=== PATIENT | male | born 1970 | race Caucasian/White ===

== ENCOUNTER → 2020-05-28 12:54 | Outpatient (CLI) | payer OTHER, SELFPAY ==
--- NOTE | 2020-05-28 12:56 | DI.MRI.S_ITS ---
PROCEDURE: MR KNEE RT WO CON INDICATIONS: Pain in right knee TECHNIQUE: Noncontrast sagittal PD fast spin echo and T2 fast spin echo with fat saturation, sagittal 3-D FLASH with fat saturation; coronal T1 spin echo and PD fast spin echo with fat saturation, and axial PD fast spin echo with fat saturation through the knee. COMPARISON: [facility] Outside Film, MR, MR KNEE RIGHT WITHOUT CONTRAST, 06/27/2017, 16:45. FINDINGS: Image quality: Excellent. Menisci: Medial meniscal tear with near complete extrusion, abnormal signal extending to the undersurface of the body and there is truncation of the free margins of the anterior horn and posterior horn. Irregularity of the peripheral lateral meniscal anterior horn suggestive of ill-defined tear. Adjacent large parameniscal cyst measuring 1.9 x 1.6 cm on sagittal image 10/8. Cruciate ligaments: Anterior cruciate ligament appears intact. Posterior cruciate ligament appears intact. Medial structures: There is medial bowing of the medial collateral ligament, with mild internal signal changes and no complete rupture. There is adjacent soft tissue edema. The appearance could reflect reactive changes to medial compartment pathology, versus low-grade sprain of the MCL. Pes anserinus tendons appear grossly unremarkable. Semimembranosus tendon appears intact. Lateral structures: The lateral collateral ligament intact. Biceps femoris tendon appears intact. Popliteus tendon grossly unremarkable. Iliotibial band appears intact. Anterior structures: Quadriceps tendon intact. Medial and lateral patellofemoral ligaments intact. There is mild patellar tendinopathy. Prepatellar and superficial infrapatellar subcutaneous edema/fluid. Bones and cartilage: No focal marrow contusion or discrete low signal fracture line. Scattered degenerative subchondral sclerosis and spurring. Within the medial compartment, diffuse full thickness loss of femoral and tibial cartilage. Within the lateral compartment, mild surface fraying of the femoral cartilage. There is intrasubstance signal change of the central weight-bearing tibial cartilage. Within the patellofemoral compartment, diffuse surface fraying of the patellar and femoral trochlear cartilage. Prominent osteophyte arising from the anterior aspect of the medial femoral condyle Joint space: Small joint effusion. No Norris's cyst. No specific evidence of intra-articular loose body. IMPRESSION: Medial meniscal tear with near complete extrusion involving the body, anterior horn and posterior horn. Grossly unchanged appearance. Better defined margins at the posterior horn since the prior study could reflect postoperative appearance. Ill-defined lateral meniscal tear involving the anterior horn, with adjacent large parameniscal cyst. This finding is new since 06/27/17 Patellar tendinopathy, with interval progression Tricompartmental joint degeneration as above, which appears progressed Dictated by: Montana Watson M.D. on 05/28/2020 at 15:12 Approved by: Montana Watson M.D. on 05/28/2020 at 15:40
== END ==
PROVIDERS: PCP Orthopaedic Surgery; Referring Provider Orthopaedic Surgery; Visit Provider Orthopaedic Surgery
DX: M25.561 Pain in right knee (principal); S83.241A Other tear of medial meniscus, current injury, right knee, initial encounter; S83.281A Other tear of lateral meniscus, current injury, right knee, initial encounter; M17.11 Unilateral primary osteoarthritis, right knee
CPT/HCPCS: 73721

== ENCOUNTER → 2020-06-02 16:49 | Outpatient (CLI) | payer OTHER, SELFPAY ==
[2020-06-02 17:38] LABS: Add Manual Diff / Slide Review NO; Basophils Absolute Auto 0 /uL (0-100); Basophils Percent Auto 0.4 % (0-2); Eosinophils Absolute Auto 100 /uL (0-450); Eosinophils Percent Auto 1.3 % (2-4); Hematocrit 41.8 % (41-53); Hemoglobin 14.3 g/dL (13.5-17.5); Lymphocytes Absolute Auto 4300 /uL (1100-4500); Lymphocytes Percent Auto 46.7 % (25-40); Mean Corpuscular HGB Conc 34.2 % (30-36); Mean Corpuscular Hemoglobin 32.1 PG (26-34); Mean Corpuscular Volume 93.9 fL (80-100); Monocytes Absolute Auto 600 /uL (0-900); Monocytes Percent Auto 6.2 % (3-14); Neutrophils Absolute Auto 4100 /uL (1500-7000); Neutrophils Percent Auto 45.4 % (50-75); Platelet Count 194 X10^3/uL (150-400); Red Blood Cell Count 4.45 X10^6/uL (4.5-5.9); White Blood Cell Count 9.1 X10^3/uL (4.5-11.0)
[2020-06-02 17:57] LABS: BUN Creatinine Ratio 18.4 (6-22); Blood Urea Nitrogen 26 mg/dL (9-20); Calcium 9.1 mg/dL (8.4-10.2); Carbon Dioxide 29 mmol/L (22-32); Chloride 106 mmol/L (98-107); Estimated Glomerular Filt Rate 53.4 mL/min (>60); Glucose 93 mg/dL (70-100); HEMOLYSIS < 15 (0-50); Sodium 139 mmol/L (137-145)
== END ==
PROVIDERS: PCP Orthopaedic Surgery; Referring Provider Orthopaedic Surgery; Visit Provider Orthopaedic Surgery
DX: Z01.812 Encounter for preprocedural laboratory examination (principal); Z01.818 Encounter for other preprocedural examination
CPT/HCPCS: 36415; 80048; 85025; 93005

== ENCOUNTER → 2020-07-05 10:00 | Outpatient (CLI) | payer OTHER, SELFPAY ==
[2020-07-05 11:02] LABS: COVID19 -Nasal RAPID Negative (Negative)
== END ==
PROVIDERS: PCP Student in an Organized Health Care Education/Training Program; Visit Provider Physician Assistant
DX: Z01.812 Encounter for preprocedural laboratory examination (principal); Z20.822 Contact with and (suspected) exposure to COVID-19
CPT/HCPCS: 87635

== ENCOUNTER 2020-07-06 09:14 | Day surgery (SDC) | payer OTHER, SELFPAY ==
[2020-07-06] VITALS (15 sets, daily range): BP systolic 105–149; BP diastolic 63–93; PULSE 54–77; RESP 10–19; TEMP 36.3–37.2; O2SAT 90–97; BMI 34.7
--- NOTE | 2020-07-06 | DI.RAD.S_ITS ---
PROCEDURE: XR KNEE RT 1TO2V INDICATIONS: POST OP TOTAL RIGHT KNEE TECHNIQUE: 2 view(s) of the knee acquired. COMPARISON: None. FINDINGS: Bones: Patient is status post knee joint arthroplasty. Hardware components are in expected positions. Visualized bony structures are intact. Soft tissues: Overlying postoperative changes are noted. IMPRESSION: Expected postoperative appearance Dictated by: Montana Watson M.D. on 07/06/2020 at 15:43 Approved by: Montana Watson M.D. on 07/06/2020 at 15:45
[2020-07-06] MEDS: ACETAMINOPHEN 325 MG TABLET 975 MG PO (09:52)
[2020-07-06] MEDS: CELECOXIB 200 MG CAPSULE PO (09:54)
[2020-07-06] MEDS: PREGABALIN 75 MG CAPSULE PO (09:54)
[2020-07-06] MEDS: VANCOMYCIN 1,000 MG/200 ML PIGGYBACK 200 MG IV (10:10)
[2020-07-06] MEDS: LACTATED RINGERS 1,000 ML 42 ML IV ×2 (10:10→14:14)
--- NOTE | 2020-07-06 10:45 | PM.PREOP ---
Pre-operative Note COVID-19 COVID-19 status: Negative Interval Note History & Physical reviewed/Exam performed by Physician: Yes Changes to H&P: No
--- NOTE | 2020-07-06 10:51 | PM.OP.1 ---
Operative Date/Time/Diagnoses Date of procedure: 07/06/20 Time of procedure: 11:30 Pre-op diagnosis: Right knee osteoarthritis Post-op diagnosis: same Procedure & Clinicians Procedure: right total knee replacement Same procedure as scheduled: Yes Indications: The patient has had progressively worsening right knee pain with radiographic changes consistent with arthritis. Non-operative management has failed and the patient has requested total knee replacement. The risks, benefits and alternatives to surgery were discussed with the patient prior to proceeding. Risks discussed included, but were not limited to, failure to relieve pain, stiffness, infection, nerve damage, deep venous thrombosis, pulmonary embolism, stroke, coma, heart attack, permanent paralysis and , as well as the potential need for eventual revision of the prosthetic. Surgeon: Sade Macias Machinist Automotive: Uziel Johnston Anesthesia Type: General and Spinal Operative Notes Findings: severe knee osteoarthritis right Closure Type: primary Specimen(s): none sent Prosthetic devices, grafts, tissues, transplants, or devices: Macias and Nephew Rosannaney BCS 2 size 8 femur, size 6 tibia, +9 poly, 38 oval patella Applied: drain(s) Estimated Blood Loss (mL): 250 Blood products transfused: none Tourniquet time (min): 100 Procedure in detail: The patient was seen in the pre-operative area, where the patient identified the right knee as the operative site and this was marked with my initials. The patient received pre-operative antibiotics, and was taken to the operating room and placed on the operative table in the supine position. After satisfactory anesthesia, a full stack web developer out was performed. The right leg was encircled with a tourniquet about the proximal thigh, and the leg was prepared from the toes to the tourniquet with ChloroPrep in the usual fashion and draped through sterile drapes. The leg was elevated and exsanguinated with Eschmark bandage and the tourniquet inflated to [250] mmHg pressure. The knee was approached through an approximately 18 cm incision centered over the patella and carried into the knee through a medial parapatellar arthrotomy. A portion of the medial and lateral meniscus was resected. Soft tissue was carefully mobilized around the patella the patella was measured with a caliper. Bone was resected from the patella and the patellar height was reconstituted with up an appropriate sized patellar component. A cover was then placed on the patella. A small amount of additional medial and lateral meniscus was resected. The visionare guide fit well to the distal femur. It looked like an appropriate distal femoral cut and the cut was made without difficulty. The rotation was assessed and the appropriate size femoral guide was placed on the distal femur and finishing cuts were made. There was no evidence of notching. The anterior, posterior and chamfer cuts were then made. The posterior osteophytes and soft tissues were then removed. The posterior capsule was injected with part of a mixture of 60 ml 0.25% Marcaine mixed with 20 ml Exparel for post operative pain control. The remainder of this mixture was injected into the capsule and subcutaneous tissues during cement curing. The tibia was prepared and the visionaire guide fit well to the distal tibia. The rotation was assessed. The patient was placed in extension residual medial and lateral meniscus as well as any residual bone was carefully resected. [No] additional tibia was resected. Hemostasis was achieved especially posteriorly. Additional local was injected into the posterior capsule. The extension gap was assessed and additional releases for gap balancing were performed as necessary. It was checked with the gap dredge pipe operator. The femoral component was trial was placed and the notch was finished. Trial tibial and femoral components were then placed and the knee placed through a range of motion. Range of motion was [0-130], with good stability throughout the range. The trials were then removed, and the tibia was finished. The bone was prepared with pulsatile lavage, and dried with a sponge. Cement was applied and the final prosthetics placed. Excess cement was removed during and after cement curing. A brief Betadine soak was performed. After confirming there was no extruded cement posteriorly, the final tibial insert was placed. The knee was copiously irrigated and the tourniquet deflated. Hemostasis was obtained with the Bovie. A drain was placed and brought out superolaterally. The capsule was closed with interrupted Vicryl suture. The subcutaneous layer was closed with barbed sutures, and the skin with a running 3-0 V-Lock suture and Surgical glue. An Aquacel Ag dressing was applied and the patient was taken to recovery having tolerated the procedure well. Complications: none Post-operative Condition: stable Disposition: Acute Care Plan for aftercare: The patient will be maintained on a standard total knee replacement protocol with weight bearing as tolerated. The patient will receive aspirin and sequential compression devices for DVT prophylaxis. The patient will be discharged home when safe for the home environment.
[2020-07-06] MEDS: CEFAZOLIN 2 GM/100 ML FROZ.PIGGY IV ×2 (11:47→21:32)
[2020-07-06] MEDS: TRANEXAMIC ACID 1,000 MG VIAL 1000 MG INJ ×2 (12:07→14:14)
--- NOTE | 2020-07-06 12:23 | SUR.OPER ---
Supine on padded OR bed. Pillow under head, arms secured on padded armboards <90 degree abduction. Safety belt across torso. Non-operative leg secured with tape over blanket over lower leg. Operative leg secured in DeMayo positioner. Foam padded brace at thigh of operative leg.
[2020-07-06] MEDS: SODIUM CHLORIDE IRRIG SOLUTION 250 ML, POVIDONE-IODINE SPONGE STICKS 1 APPLIC IRR (12:28)
[2020-07-06] MEDS: BUPIVACAINE 0.25% W/ EPI (PF) 10 ML VIAL 60 ML INJ (12:28)
[2020-07-06] MEDS: BUPIVACAINE LIPOSOME 266 MG/20 ML VIAL INJ (12:30)
[2020-07-06] MEDS: OXYCODONE IR 5 MG TABLET PO ×2 (15:35→21:39)
[2020-07-06] MEDS: SODIUM CHLORIDE 0.9% 1,000 ML 100 ML IV (16:58)
[2020-07-06] MEDS: IBUPROFEN 400 MG TABLET PO ×2 (17:30→21:34)
[2020-07-06] MEDS: ACETAMINOPHEN 325 MG TABLET 650 MG PO ×2 (17:30→21:39)
--- NOTE | 2020-07-06 18:47 | PC.NURSE ---
Addendum entered by Stefani Thakkar R.N. 07/06/20 22:10: Satisfactory post op course. Med @ 7660 for discomfort w/good relief. Dsg CDI IVF continue as per orders w/o incidence Call light w/in reach, bed alarm on for pt safety. Continue w/plan of care. Original Note: Pt arrived from PACU w/o any discomfort. A/O x 3 IVF NS @ 100/hr infusing as per orders into the LFA via pump. Dsg to right knee CDI (Roverto/aquacell dsg) Hemavac intact/patent unclamped @ 1700 Denies issues at this time. Call light w/in santa, pt calls appropriately for needs.
[2020-07-06] MEDS: ASPIRIN EC 81 MG TABLET PO (21:34)
[2020-07-06] MEDS: DOCUSATE 100 MG CAPSULE PO (21:39)
--- NOTE | 2020-07-06 21:53 | PC.NURSE ---
Pt. saw the portions for his size as not enough, and ate two trays at 100%
[2020-07-07] MEDS: IBUPROFEN 400 MG TABLET PO ×4 (00:06→12:15)
[2020-07-07 00:15] VITALS: BP 118/60; PULSE 64; RESP 18; TEMP 36.8; O2SAT 94
[2020-07-07] MEDS: OXYCODONE IR 5 MG TABLET PO ×2 (01:53→07:53)
--- NOTE | 2020-07-07 02:14 | PC.NURSE ---
Addendum entered by Karie Craig R.N. 07/07/20 04:36: Drain unclamped at 0430. Original Note: Hemovac output 400 mL w/in 4 hours. Provider made aware, order to clamp drain for 2 hrs and observe. Drain clamped at 0215.
[2020-07-07 03:48] VITALS: BP 123/70; PULSE 69; RESP 18; TEMP 36.3; O2SAT 96
[2020-07-07] MEDS: CEFAZOLIN 2 GM/100 ML FROZ.PIGGY IV (04:37)
[2020-07-07 06:18] LABS: Hematocrit 38.8 % (41-53); Hemoglobin 13.1 g/dL (13.5-17.5)
[2020-07-07 07:27] VITALS: BP 135/77; PULSE 62; RESP 16; TEMP 35.6; O2SAT 96
[2020-07-07] MEDS: DOCUSATE 100 MG CAPSULE PO (08:02)
[2020-07-07] MEDS: ASPIRIN EC 81 MG TABLET PO (08:02)
[2020-07-07] MEDS: ACETAMINOPHEN 325 MG TABLET 650 MG PO (08:02)
--- NOTE | 2020-07-07 09:09 | PM.DS.1 ---
History of Present Illness History of Present Illness Date Patient Seen: 07/07/20 Time Patient Seen: 09:09 Chief complaint: RIGHT TKA *OPB* Narrative: Please refer to previously documented HPI and chart. Discharge Providers Provider Discharge Date: 07/07/20 Primary care physician: Claire Belcher MD Consults: 07/05/20 08:50 Consult to Respiratory Therapy Evaluate & Treat Comment: Unknown if uses cpap Physician Instructions: Evaluate and treat 07/06/20 06:00 Consult to Anesthesiology Routine Comment: Consulting Provider: Anesthesiologist Reason for consultation: Regional block for post operative pain control 07/06/20 10:03 Consult to Respiratory Therapy Evaluate & Treat Comment: Physician Instructions: Evaluate and treat 07/06/20 15:56 Consult to Discharge Planning Routine Comment: Consult to Physical Therapy Evaluate & Treat Comment: Physician Instructions: postop TKA protocol Consult to Respiratory Therapy Evaluate & Treat Comment: Physician Instructions: Evaluate and treat Discharge provider: Uziel Johnston PA-C Summary Hospital Course Discharge Diagnosis: Right knee osteoarthritis Status post total right knee arthroplasty Hospital Course: This is a 50-year-old male with the above-listed diagnoses who was consented for the above indicated procedure presenting to OR undergoing said procedure without difficulty or complication been admitted for rehabilitation convalescing appropriately on postoperative day one was doing well with normal H&H and no signs of postoperative anemia had his drain pulled per Dr. Macias despite moderate output. Per Dr. Macias patient was stable for discharge home safely at that time the patient verbalized understanding postoperative care instructions and plan for follow-up in clinic for re-evaluation or sooner as needed. Status at Discharge Cognitive/behavioral status at discharge: oriented Functional status at discharge: uses cane/walker Overall status at discharge: patient is progressing back to baseline Time Spent with Patient Time spent: Less than 30 minutes Exam Vital Signs (past 8 hours): - 07/07/20 03:48 07/07/20 07:27 Temperature 97.3 F L 96.0 F L Pulse Rate 69 62 Respiratory Rate 18 16 Blood Pressure 123/70 135/77 Pulse Oximetry 96 96 Oxygen Delivery Method Room Air,CPAP Oxygen Flow Rate 0 Narrative Exam Narrative: 50-year-old male observed resting comfortably in no apparent distress. Alert and oriented within normal limits. Regular heart rate and normal inspiratory effort. Dressing was clean, dry and intact. His drain had moderate macie blood output. The extremity distal to the affected joint was neurovascularly intact with grossly normal motor function. Patient was negative for signs and symptoms of DVT bilaterally. Objective Labs Result Diagrams: 07/07/20 05:30 Labs: Laboratory Results - last 24 hr 07/07/20 05:30 Hgb 13.1 L Hct 38.8 L [facility] Medical History (Updated 07/05/20 @ 08:49 by Seema Cummins RN) Sleep apnea Surgical History (Updated 07/05/20 @ 08:46 by Seema Cummins RN) History of appendectomy History of vasectomy Social History household members: spouse Smoking Status: Never smoker alcohol intake: never Discharge Assessment & Plan Assessment and Plan Assessment: Right knee osteoarthritis Status post total right knee arthroplasty Plan of Treatment: -discharge home today after cleared by PT/OT. -right total knee care protocols apply. -follow-up in 2 weeks for re-evaluation or sooner as needed. Discharge Plan Discharge Plan Patient Disposition: Home Discharge orders & Medications Discharge Orders: Discharge (Order); Ordered 07/07/20 Ordered By: Uziel Johnston Prescriptions: New acetaminophen 325 mg Tablet 650 mg PO TID PRN (Reason: Breakthrough Pain, Moderate) Qty: 60 RF: 0 aspirin 81 mg Tablet,Delayed Release (Dr/Ec) 81 mg PO BID Qty: 90 RF: 0 ibuprofen 400 mg Tablet 400 mg PO Q4HR PRN (Reason: Breakthrough Pain, Moderate) Qty: 60 RF: 0 oxycodone 5 mg Tablet 5 mg PO Q4HR PRN (Reason: Pain, Moderate (4-6)) Qty: 60 RF: 0 Continued acetaminophen 650 mg Tablet 650 mg PO Q6H PRN (Reason: Pain (Scale Score 7-10)) RF: 0 Follow up/Referrals: Claire Belcher MD [Primary Care Provider] - Sade Macias MD [Physician] - (Follow-up in clinic in 2 weeks for re-evaluation or sooner as needed.) Diet/Activity/Treatments Diet: Diet as Tolerated Activity: Weight-bearing as tolerated on right lower extremity. Cold/Heat Therapy: Ice 20 minutes every hour as needed and tolerated. Skin/Wound/Dressing Care Report to your healthcare provider any signs of infection, such as:: chills, fever, night sweats, increased pain, unusual drainage and unusual redness Dressing: Keep dressing clean, dry and intact. Call if soiled or saturated. Visit Report/Discharge Packet Instructions: DI for Knee Replacement Stand Alone Forms: Surgery Discharge Discharge Data Primary Care Provider: Claire Belcher Attending Provider: Sade Macias VTE Deep Vein Thrombosis/Pulmonary Embolism Present on Admission: No
--- NOTE | 2020-07-07 09:20 | PT.IIE ---
Current Diagnoses Sleep apnea, unspecified (07/06/20) Unilateral primary osteoarthritis, right knee (07/06/20) Surgery Performed Operation Date: 07/06/20 10:45 Actual Procedures p Total Knee Arthroplasty(Right) - Sade Macias MD Surgical History (Last Updated 07/05/20 @ 08:46 by Seema Cummins, RN) History of appendectomy History of vasectomy Medical History (Last Updated 07/05/20 @ 08:49 by Seema Cummins, RN) Sleep apnea Physical Therapy Inpatient Evaluation/Re-Eval M1 PT/OT-IP Prior Functional Status Start: 07/07/20 11:49 Freq: NEEDED Status: Active Protocol: Document 07/07/20 09:20 AB (Rec: 07/07/20 12:26 AB [email or web address]) Medical Review Prior Functional Status Medical History Reviewed Yes Communication able to make needs known Mobility and Gait pt stated that he is independent with all mobilities and ambulation without AD Social History Household Members spouse Living Arrangements House Number of Floors (Floors) 3 or More Floors Number of Stairs To Enter/Railing? 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 M2 PT-IP Current Condition Start: 07/07/20 11:49 Freq: NEEDED Status: Active Protocol: Document 07/07/20 09:20 AB (Rec: 07/07/20 12:26 AB [email or web address]) Physical Therapy Current Condition Current Condition Evaluation Date 07/07/20 Treatment Diagnosis s/p R TKA; difficulty in walking Onset Date 07/06/20 Weight Bearing Status Weight Bearing Status Weight Bear as Tolerated Allowed Weight Bearing Amount (enter % RLE WBAT or #) (%) M3 PT-IP Subjective Start: 07/07/20 11:49 Freq: NEEDED Status: Active Protocol: Document 07/07/20 09:20 AB (Rec: 07/07/20 12:26 AB [id number]) Subjective Physical Therapy Visit Type Type Initial Evaluation Visit Start Time 09:20 Visit Stop Time 09:54 Total Visit Minutes 34 Number of WHIP OPERATOR Visits 0 Physical Therapy Visit Comments Patient Comments pt is agreeable to do PT Therapy Pain Assessment Pain When Pain Assessed At Rest Pain Present Pain Present Pain Reported Location rigth knee Intensity 3 Scale Used increases to 5/10 with mobility Pain Management Techniques Apply Cold,Distraction, Elevation,Modification of Treatment,Re-positioning, Timing of Activity with Medications M4 PT-IP Mobility and Gait Start: 07/07/20 11:49 Freq: NEEDED Status: Active Protocol: Document 07/07/20 09:20 AB (Rec: 07/07/20 12:26 AB [id number]) PT-Bed Mobility Assessment Supine to Sit Supine to Sit Standby Assistance Sit to Supine Sit to Supine Standby Assistance PT-Transfer Assessment Sit to and From Stand Sit to and from Stand Standby Assistance Equipment Transfer Assistive Device Gait Belt,Front Wheeled Walker Orthotic/Prosthetic Devices or Brace: No Comments Mobility Comments completed supine to sit SBA. pt was able to sit on EOB SBA. completed sit to stand SBA and ambulated in room using FWW SBA and agreed to walk in the hallway using FWW ~ 125 ft SBA. completed up/down steps using 1 rail SBA and cues. ambulated back to his room using FWW SBA and requested to go back in bed to rest and completed sit to supine SBA. positioned in bed. call light and table placed within reach . ice pack provided. Gait Assessment Gait Gait Assistance Required: Standby Assistance Distance (Feet) 125 Able to Maintain Weight Bearing Status Yes During Gait Assistive Devices Assistive Device Gait Belt,Front Wheeled Walker Orthotic/Prosthetic Devices or Brace: No Gait Deviations General Gait Pattern Antalgic,Decreased Stride Length,Decreased Feet Clearance Factors Limiting Gait Function Factors Limiting Gait Function Decreased Activity Tolerance, Decreased Strength,Limited Range of Motion,Pain,Poor Balance Comments Gait Comments pls refer to mobiltiy section for details Stair Climbing Assessment Evaluation Level of Assist On Stairs Standby Assistance Devices Stair Climbing Assistive Devices Left Railing,Right Railing Technique/Endurance Stair Climbing Direction Ascend and Descend Stair Climbing Technique Step to Step Number of Steps Climbed 3 Query Text: Stair Climbing Set # Repetitions (reps) 2 Comments Stair Climbing Comments pt first used L rail ascending in first set and then R rail on 2nd set. pt stated that he feels confident with stair climbing and does not have any concerns PT-Balance Assessment Sitting Balance and Reactions Static Sitting Balance Ability Normal Dynamic Sitting Balance Ability Normal Standing Balance and Reactions Static Standing Balance Ability Good Dynamic Standing Balance Ability Fair Device Used FWW M5 PT-IP Objective Assessments Start: 07/07/20 11:49 Freq: NEEDED Status: Active Protocol: Document 07/07/20 09:20 AB (Rec: 07/07/20 12:26 AB [email or web address]) Orientation Orientation/Cognition Level of Alertness Alert Orientation Name,Place,Situation Language Function Ability No Deficits Noted Safety Awareness Understands Safety Issues Memory Description No Deficits Noted Gross Range of Motion Lower Extremity ROM Assessment Right Impaired Impairments R knee extension lacking ~ 15 deg to 0 R knee flexion: ~ 90 deg Strength Lower Extremity Strength Assessment Right Impaired Hip 4-/5 Knee 4-/5 Coordination Assessment Gross Coordination Gross Coordination WNL Sensation Assessment Sensation Gross Sensation WNL Muscle Tone Muscle Tone WNL Yes M6 PT-IP Treatment Start: 07/07/20 11:49 Freq: NEEDED Status: Active Protocol: Document 07/07/20 09:20 AB (Rec: 07/07/20 12:26 AB [email or web address]) Physical Therapy Treatment Exercises Exercises Heel Slides Education Education Provided Precautions,Weight Bearing Status,Post-Op Packet,Safety M7 PT-IP Assessment and Plan Start: 07/07/20 11:49 Freq: NEEDED Status: Active Protocol: Document 07/07/20 09:20 AB (Rec: 07/07/20 12:26 AB [email or web address]) PT Summary Assessment and Plan Potential Rehabilitation Potential Good Status of Condition at Evaluation Stable Summary Impairments Pain,ROM,Strength,Balance, Coordination,Bed Mobility, Transfers,Gait,Activity Tolerance Assessment Summary pt requiring SBA with mobility and plans to go home with spouse to assist him. pt stated that he is set up for outpt PT. pt may go home when medically stable. Goals Bed Mobility Goal Independent Transfer Goal Independent,Front Wheeled Walker Gait Goal Independent,Front Wheel Walker Gait Distance 200 Other Goals up/down 6 steps 1 rail mod I Days to Meet Goals 3 Frequency of Treatment Frequency Of Treatment Twice a Day Treatment Plan Physical Therapy Treatment Plan Bed Mobility Training,Transfer Training,Gait Training, Therapeutic Exercise,Balance Retraining,Post Op Education, Discharge Planning,Hot or Cold Pack,Neuromuscular Re-ed, Coordination Retraining,Manual Therapy Recommendations To Nursing Amount of Assist Needed Standby Assistance Discharge Recommendations PT Discharge Recommendations Home with Assistance, Outpatient PT Transportation Needs at Discharge Private Vehicle
--- NOTE | 2020-07-07 13:28 | CM.DANOTE ---
Patient is a 50 year old male who was admitted on 07/06/20 for RTKA. Pt has [employer] for insurance and his PCP is Claire Belcher. EMR was reviewed. Per Ortho MD, pt tolerated procedure well and pain controlled and likely can d/c home later today pending PT eval. Per PT, recommending safe d/c home with spouse assist and outpt PT. 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 Pt denies any hx of HH or SNF and has not completed any DPOA pwk. Pt preference is home today via spouse POV and does not anticipate any needs. Plan: SW to follow for likely pt d/c home later today via spouse POV and no SW needs at this time. MITCHELL Shirley Discharge Planning/Care Management CM Discharge Assessment Start: 07/07/20 13:26 Freq: Status: Active Protocol: Document 07/07/20 13:27 BF (Rec: 07/07/20 13:28 BF [id number]) Discharge Planning Assessment Assigned [employer] Tobacco Processing Supervisor MITCHELL Salinas Advance Directives? No Advance Directives on File No History Provided By Patient,Medical Record Has Patient been admitted in last 30 No days? Prior Living Arrangements House Household Members spouse Type of transporation used prior to Drives own vehicle admit Independent with ADL's Yes Is patient alert and oriented? Yes Caregiver for Another No Barriers to Discharge No Discharge Plan Home Community Services Physical Therapy Transportation Arrangement Spouse can transport home Referrals Initiated None needed Whiteboard Updated in Patient Room with Yes name and ext. # of Cigar Tobacco Processing Supervisor Review Status In Process Please Provide Date Initial DC 07/07/20 Assessment Was Performed Next Review Type Continued Stay Review Pre-Anesthesia Assessment Start: 07/05/20 08:21 Freq: Status: Active Protocol: Document 07/05/20 08:21 TI (Rec: 07/05/20 08:49 [facility] [id number]) Pre-Anesthesia Assessment Patient Information Reviewed Via Chart Review Diagnostic Results BMP/CMP,CBC,EKG,Urinalysis, Other Comment A1c Primary Care Provider Neeraj Trevino Seen Specialist in Last 12 Months Yes Specialist Seen Orthopedist Height 187.96 cm Anesthesia Review Requested No Campus Administrative Assistant No Smoking Status Never smoker Musculoskeletal Symptoms Abnormal Gait,Difficulty Walking,Joint Pain Hx Sleep Apnea Yes
--- NOTE | 2020-07-07 13:33 | PC.NURSE ---
Pt is dressed and ready for discharge home with Spouse. Spouse is at the bedside. Went over d/c instructions with Pt and Spouse-discussed d/c meds, time of last dose, reviewed stroke education, s/s of infection and when to call MD, showering, and drinking plenty of fluids to prevent constipation or dehydration. Reminded Pt that is not to drive while on narcotics. Pt and Spouse deny further questions and were taken out via w/c to POV with all belongings.
== END 2020-07-07 13:36 | disposition home or self-care (01) ==
LOC: OR 09:19 → AC 09:19
PROVIDERS: PCP Student in an Organized Health Care Education/Training Program; Referring Provider Orthopaedic Surgery; Visit Provider Orthopaedic Surgery
PROC: 0SRC0JZ Replacement of Right Knee Joint with Synthetic Substitute, Open Approach (ICD-10-PCS; CPT 27447; principal; 2020-07-06 10:45)
DX: M17.11 Unilateral primary osteoarthritis, right knee (principal); G47.30 Sleep apnea, unspecified
CPT/HCPCS: 27447; 36415; 73560; 85014; 85018; 94660; 94762; 97161; C1776; C9290; J0690; J1100; J2250; J2274; J2405; J2704; J3010

== ENCOUNTER → 2023-04-27 12:44 | Outpatient (CLI) | payer OTHER, SELFPAY ==
[2020-07-06 16:00] VITALS: BMI 34.7
[2023-04-27 13:09] LABS: Urine Volume 10mL (spun)
[2023-04-27 14:08] LABS: Add Manual Diff / Slide Review NO; Basophils Absolute Auto 0 /uL (0-100); Basophils Percent Auto 0.5 % (0-2); Eosinophils Absolute Auto 100 /uL (0-450); Eosinophils Percent Auto 1.1 % (2-4); Hematocrit 43.5 % (41-53); Hemoglobin 14.9 g/dL (13.5-17.5); Lymphocytes Absolute Auto 3900 /uL (1100-4500); Lymphocytes Percent Auto 43.7 % (25-40); Mean Corpuscular HGB Conc 34.4 % (30-36); Mean Corpuscular Hemoglobin 32.2 PG (26-34); Mean Corpuscular Volume 93.5 fL (80-100); Monocytes Absolute Auto 700 /uL (0-900); Monocytes Percent Auto 7.6 % (3-14); Neutrophils Absolute Auto 4200 /uL (1500-7000); Neutrophils Percent Auto 47.1 % (50-75); Platelet Count 229 X10^3/uL (150-400); Red Blood Cell Count 4.65 X10^6/uL (4.5-5.9); Red Cell Distribution Width 13.5 % (11.6-14.8)
[2023-04-27 14:13] LABS: Appearance Urine UA CLEAR; Bilirubin Urine UA NEGATIVE (NEGATIVE); Color Urine UA YELLOW; Glucose Urine UA NEGATIVE (Negative); Ketones Urine UA NEGATIVE (NEGATIVE); Leukocyte Esterase Urine UA NEGATIVE (NEGATIVE); Nitrite Urine UA NEGATIVE (Negative); Occult Blood Urine UA NEGATIVE (Negative); Protein Urine UA NEGATIVE (Negative); Urobilinogen Urine UA 0.2 E.U./dL (0.2); pH Urine UA 5.5 (4.5-8.0)
[2023-04-27 14:28] LABS: BUN Creatinine Ratio 16.1 (6-22); Blood Urea Nitrogen 18 mg/dL (9-20); Calcium 10.1 mg/dL (8.4-10.2); Carbon Dioxide 27 mmol/L (22-32); Chloride 101 mmol/L (98-107); Estimated Glomerular Filt Rate > 60 mL/min (>60); Glucose 92 mg/dL (70-100); HEMOLYSIS < 15 (0-50); Potassium 4.8 mmol/L (3.4-5.1); Sodium 138 mmol/L (137-145)
[2023-04-27 14:30] LABS: Hemoglobin A1C% w Est Avg Glu 5.5 % (4.0-6.0)
[2023-04-27 14:32] LABS: Bacteria Urine None Seen; Culture Indicated Urine Cult Not Indicated; RBC Urine None Seen (0-5/HPF); Squamous Epithelial Cell Urine 1-5 /HPF (0-5/HPF); WBC Urine 0-1/HPF (0-5/HPF)
== END ==
LOC: LAB 12:48
PROVIDERS: Referring Provider Orthopaedic Surgery; Visit Provider Orthopaedic Surgery
DX: Z01.812 Encounter for preprocedural laboratory examination (principal); Z01.818 Encounter for other preprocedural examination; R73.9 Hyperglycemia, unspecified; N39.0 Urinary tract infection, site not specified
CPT/HCPCS: 36415; 80048; 81001; 83036; 85025; 93005

== ENCOUNTER 2023-05-18 11:52 | Day surgery (SDC) | payer OTHER, SELFPAY ==
[2020-07-06 16:00] VITALS: BMI 34.7
[2023-05-09 12:48] VITALS: BMI 37.3
[2023-05-18] VITALS (16 sets, daily range): BP systolic 139–174; BP diastolic 57–114; PULSE 61–112; RESP 12–21; TEMP 35.9–36.8; O2SAT 92–97; BMI 36.3; BMI 35.5
--- NOTE | 2023-05-18 | DI.RAD.S_ITS ---
PROCEDURE: XR KNEE LT 1TO2V INDICATIONS: LEFT KNEE TECHNIQUE: 2 view(s) of the knee acquired. COMPARISON: [facility], CR, XR KNEE RT 1TO2V, 07/06/2020, 15:00. FINDINGS: Bones: Patient is status post knee joint arthroplasty. Hardware components are in expected positions. Visualized bony structures are intact. Soft tissues: Overlying postoperative changes are noted. Expected intra-articular gas. IMPRESSION: Expected post-operative appearance of a knee arthroplasty. Dictated by: India Pickard M.D. on 05/18/2023 at 19:58 Approved by: India Pickard M.D. on 05/18/2023 at 19:59
[2023-05-18] MEDS: LACTATED RINGERS 1,000 ML 42 ML IV ×2 (13:23→17:14)
[2023-05-18] MEDS: ACETAMINOPHEN 325 MG TABLET 975 MG PO (13:46)
[2023-05-18] MEDS: CELECOXIB 200 MG CAPSULE PO (13:47)
[2023-05-18] MEDS: VANCOMYCIN 1,500 MG/300 ML PIGGYBACK 200 MG IV (13:48)
--- NOTE | 2023-05-18 15:26 | P.OP_ITS ---
Operative Date/Time/Diagnoses Date of procedure: 05/18/23 Time of procedure: 15:35 Pre-op diagnosis: Severe left knee OA Post-op diagnosis: same Procedure & Clinicians Procedure: Left total knee arthroplasty with Cori Same procedure as scheduled: Yes Indications: The patient has had progressively worsening left knee pain with radiographic ch anges consistent with arthritis. Non-operative management has failed and the patient has requested total knee replacement. The risks, benefits and alternatives to surgery were discussed with the patient prior to proceeding. Risks discussed included, but were not limited to, failure to relieve pain, stiffness, infection, nerve damage, deep venous thrombosis, pulmonary embolism, stroke, coma, heart attack, permanent paralysis and , as well as the potential need for eventual revision of the prosthetic. Surgeon: Sade Macias Melangeur Operator: Yadiel Steiner Anesthesia Type: General and Spinal Operative Notes Findings: Severe left knee OA, adequate stability Closure Type: primary Specimen(s): none sent Prosthetic devices, grafts, tissues, transplants, or devices: Macias and nephew size 8 femur, size 7 tibia, +9 poly, 38 mm patella Estimated Blood Loss (mL): 250 Blood products transfused: none Tourniquet time (min): 109 Procedure in detail: The patient was seen in the pre-operative area, where the patient identified the left knee as the operative site and this was marked with my initials. The patient received pre-operative antibiotics, and was taken to the operating room and placed on the operative table in the supine position. After satisfactory anesthesia, a time lock expert out was performed. The left leg was encircled with a tourniquet about the proximal thigh, and the leg was prepared from the toes to the tourniquet with ChloroPrep in the usual fashion and draped through sterile drapes. The leg was elevated and exsanguinated with Eschmark bandage and the tourniquet inflated to [250] mmHg pressure. A PA was used during the procedure was essential for intraoperative retraction and safe implantation of the components. The knee was approached through an approximately 18 cm incision centered over the patella and carried into the knee through a medial parapatellar arthrotomy. Portion of the medial and lateral meniscus was resected. Soft tissue was carefully mobilized around the patella the patella was measured with a caliper. Bone was resected from the patella and the patellar height was reconstituted with up an appropriate sized patellar component. A cover was then placed on the patella. A small amount of additional medial and lateral meniscus was resected. Cori robotic pins were placed in the femur and in the tibia. The patient was placed through a range of motion and both the femur and the tibia were carefully mapped. Both stressed and unstressed range of motion data were collected. The distal femur was carefully resected using the Cori robotic assisted bur. The appropriate size femoral guide was placed on the distal femur and finishing cuts were made. There was no evidence of notching. The anterior, posterior and chamfer cuts were then made. The posterior osteophytes and soft tissues were then removed. The posterior capsule was injected with part of a mixture of 60 ml 0.25% Marcaine mixed with 20 ml Exparel for post operative pain control. The remainder of this mixture was injected into the capsule and subcutaneous tissues during cement curing. The tibia was carefully navigated. A tibial cut was performed. The tibia was prepared. The rotation was assessed. The patient was placed in extension residual medial and lateral meniscus as well as any residual bone was carefully resected. [No] additional tibia was resected. Hemostasis was achieved especially posteriorly. Additional local was injected into the posterior capsule. The femoral component was trial was placed and the notch was finished. Trial tibial and femoral components were then placed and the knee placed through a range of motion. Range of motion was [0-130], with good stability throughout the range. The trials were then removed, and the tibia was finished. The bone was prepared with pulsatile lavage, and dried with a sponge. Cement was applied and the final prosthetics placed. Excess cement was removed during and after cement curing. A brief Betadine soak was performed. After confirming there was no extruded cement posteriorly, the final tibial insert was placed. The knee was copiously irrigated and the tourniquet deflated. Hemostasis was obtained with the Bovie cautery. The capsule was closed with interrupted Vicryl suture. The subcutaneous layer was closed with barbed sutures, and the skin with a running 3-0 V-Lock suture and Surgical glue. An Aquacel Ag dressing was applied and the patient was taken to recovery having tolerated the procedure well. Complications: none Post-operative Condition: stable Disposition: observation Plan for aftercare: The patient will be maintained on a standard total knee replacement protocol with weight bearing as tolerated. The patient will receive aspirin and sequential compression devices for DVT prophylaxis. The patient will be discharged home when safe for the home environment.
[2023-05-18] MEDS: CEFAZOLIN VIAL 3 GM in SODIUM CHLORIDE 0.9% 100 ML IV ×2 (16:00→22:54)
[2023-05-18] MEDS: TRANEXAMIC ACID 1,000 MG VIAL 1000 MG INJ ×2 (16:10→18:03)
[2023-05-18] MEDS: BUPIVACAINE LIPOSOME 266 MG/20 ML VIAL INJ (16:46)
[2023-05-18] MEDS: BUPIVACAINE 0.25% (PF) 60 ML, EPINEPHrine 0.3 MG INJ (16:47)
[2023-05-18] MEDS: OXYCODONE IR 5 MG TABLET PO ×2 (18:53→19:25)
[2023-05-18] MEDS: hydrOXYzine 50 MG/ML INJ 25 MG IM (18:54)
[2023-05-18] MEDS: fentaNYL 100 MCG/2 ML INJ IV ×2 (18:59→19:13)
[2023-05-18] MEDS: ASPIRIN EC 81 MG TABLET PO (20:31)
[2023-05-18] MEDS: IBUPROFEN 400 MG TABLET PO (20:31)
[2023-05-18] MEDS: DOCUSATE 100 MG CAPSULE PO (20:32)
[2023-05-18] MEDS: ACETAMINOPHEN 325 MG TABLET 650 MG PO (20:32)
[2023-05-18] MEDS: LACTATED RINGERS 1,000 ML 100 ML IV (20:36)
[2023-05-18] MEDS: HYDROMORPHONE 0.5 MG INJ IV (21:17)
[2023-05-18] MEDS: ONDANSETRON 4 MG ODT PO (22:53)
--- NOTE | 2023-05-18 23:15 | PC.ADMIT ---
[address] Admission Note: The patient,Elio Eduardo,53 y/o, was given written information regarding hospital policies, unit procedures and contact persons. Patient's smoking status: Never smoker. Vital Signs - 8 hr 05/18/23 18:43 05/18/23 18:49 05/18/23 18:54 Temperature 98.3 F Pulse Rate 82 88 84 Respiratory Rate 16 15 12 Blood Pressure 156/98 H 171/114 H 169/106 H Pulse Oximetry 94 92 96 Oxygen Delivery Method Room Air Room Air Room Air Oxygen Flow Rate 05/18/23 18:57 05/18/23 19:02 05/18/23 19:08 Temperature Pulse Rate 76 77 80 Respiratory Rate 16 14 16 Blood Pressure 174/113 H 151/102 H 162/101 H Pulse Oximetry 93 92 96 Oxygen Delivery Method Room Air Nasal Cannula Nasal Cannula Oxygen Flow Rate 2 2 05/18/23 19:17 05/18/23 19:22 05/18/23 19:32 Temperature 97.8 F Pulse Rate 79 73 78 Respiratory Rate 16 15 15 Blood Pressure 162/101 H 157/114 H 165/112 H Pulse Oximetry 97 96 95 Oxygen Delivery Method Nasal Cannula Nasal Cannula Nasal Cannula Oxygen Flow Rate 4 4 4 05/18/23 19:39 05/18/23 19:45 05/18/23 20:05 Temperature 96.8 F L Pulse Rate 78 83 18 L Respiratory Rate 16 16 18 Blood Pressure 149/113 H 154/101 H 151/57 H Pulse Oximetry 97 97 96 Oxygen Delivery Method Nasal Cannula Nasal Cannula Oxygen Flow Rate 3 3 0 05/18/23 20:35 05/18/23 21:00 05/18/23 21:05 Temperature 97.7 F 97.8 F Pulse Rate 112 H 84 Respiratory Rate 18 18 Blood Pressure 144/98 H Pulse Oximetry 96 96 Oxygen Delivery Method Nasal Cannula Oxygen Flow Rate 2 2 05/18/23 22:05 Temperature 96.6 F L Pulse Rate 89 Respiratory Rate 18 Blood Pressure 139/82 Pulse Oximetry 93 Oxygen Delivery Method Oxygen Flow Rate 0 Patient admitted to room 223 from PACU at 2004 following left TKA. Is alert and oriented. Breath sounds CTA with RA sat initially at 94% but dropped into upper 80's when off oxygen so placed back on 2L/min per NC; currently on home CPAP without oxygen with sat of 93% HRR w/BP elevated at 144/98. Initially without nausea at had couple sandwiches, juice and crackers but developed nausea around 2300 so was medicated with zofran ODT. BT hypoactive and has not yet passed flatus. Voiding per urinal and denies dysuria. Is able to move himself in bed. Did complain of 7/[address] left knee pain so Dr. Macias was contacted and order received for IV Dilaudid which he was given and now states pain is 5/10 and tolerable; ice packs are also being used to help minimized pain. Aquacel dressing covered with aly wrap is CDI. Has good CMS and able to lift leg well off the bed. Bilateral calf SCD's were applied. Fall risk score is moderate so bed alarm not initiated at this time as calls appropriately when needing assistance.
[2023-05-19] VITALS: BP 121/76; PULSE 79; RESP 17; TEMP 36.4; O2SAT 93
[2023-05-19] MEDS: IBUPROFEN 400 MG TABLET PO ×3 (00:11→07:51)
[2023-05-19] MEDS: ACETAMINOPHEN 325 MG TABLET 650 MG PO ×2 (02:25→07:51)
[2023-05-19 05:07] LABS: Hematocrit 40.6 % (41-53); Hemoglobin 13.7 g/dL (13.5-17.5)
[2023-05-19] MEDS: CEFAZOLIN VIAL 3 GM in SODIUM CHLORIDE 0.9% 100 ML IV (06:24)
[2023-05-19] MEDS: OXYCODONE IR 5 MG TABLET PO ×2 (07:50→11:38)
[2023-05-19 08:00] VITALS: BP 127/69; PULSE 81; RESP 16; TEMP 37.3; O2SAT 95
[2023-05-19] MEDS: ASPIRIN EC 81 MG TABLET PO (08:29)
[2023-05-19] MEDS: DOCUSATE 100 MG CAPSULE PO (08:29)
[2023-05-19] MEDS: HYDROMORPHONE 0.5 MG INJ IV ×2 (08:29→11:39)
--- NOTE | 2023-05-19 09:00 | PT.IIE ---
Current Diagnoses Unilateral primary osteoarthritis, left knee (05/18/23) Surgery Performed Operation Date: 05/18/23 13:45 Actual Procedures p Total Knee Arthroplasty - Robot(Left) - Sade Macias MD Surgical History (This Medical Record has been edited. Action required.) History of appendectomy History of total right knee replacement (07/06/20) History of vasectomy Medical History (This Medical Record has been edited. Action required.) History of COVID-19 (2019) Sleep apnea Physical Therapy Inpatient Evaluation/Re-Eval M1 PT/OT-IP Prior Functional Status Start: 05/19/23 13:09 Freq: NEEDED Status: Active Protocol: Document 05/19/23 09:00 AB (Rec: 05/19/23 13:23 AB [id number]) Medical Review Prior Functional Status Medical History Reviewed Yes Communication able to make needs known Mobility and Gait pt stated that he was independent with all mobilities and ambulation without AD Social History Household Members spouse Living Arrangements House Number of Floors (Floors) 3 or More Floors Number of Stairs To Enter/Railing? 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 PT-IP Current Condition Start: 05/19/23 13:09 Freq: NEEDED Status: Active Protocol: Document 05/19/23 09:00 AB (Rec: 05/19/23 13:23 AB [id number]) Physical Therapy Current Condition Current Condition Evaluation Date 05/19/23 Treatment Diagnosis s/p L TKA; difficulty in walking Onset Date 05/18/23 M3 PT-IP Subjective Start: 05/19/23 13:09 Freq: NEEDED Status: Active Protocol: Document 05/19/23 09:00 AB (Rec: 05/19/23 13:23 AB [id number]) Subjective Physical Therapy Visit Type Type Initial Evaluation Visit Start Time 09:00 Visit Stop Time 09:51 Number of EXPERIMENTAL MECHANIC ELECTRICAL Visits 0 Physical Therapy Visit Comments Patient Comments agreeable to do PT Therapy Pain Assessment Pain When Pain Assessed At Rest Pain Present Pain Present Pain Reported Location Left Knee Intensity 3 Scale Used Numeric (0 - 10) Pain Management Techniques Apply Cold,Distraction, Modification of Treatment,Re- positioning,Timing of Activity with Medications M4 PT-IP Mobility and Gait Start: 05/19/23 13:09 Freq: NEEDED Status: Active Protocol: Document 05/19/23 09:00 AB (Rec: 05/19/23 13:23 AB [id number]) PT-Bed Mobility Assessment Supine to Sit Supine to Sit Standby Assistance Sit to Supine Sit to Supine Standby Assistance PT-Transfer Assessment Sit to and From Stand Sit to and from Stand Standby Assistance,1 Person Assistance,Use of Upper Extremities Equipment Transfer Assistive Device Gait Belt,Front Wheeled Walker Orthotic/Prosthetic Devices or Brace: No Transfers Transfer Destination Chair Transfer Technique ambulated Transfer Ability Level of Assist Standby Assistance,Use of Upper Extremities Comments Mobility Comments pt supine in bed and agreeable to do PT. obtained PLOF and home set up. post-op folder provided and reviewed contents . BP checked: 133/70. pt completed supine to sit SBA. able to sit on EOB SBA. completed sit to stand SBA and ambulated in room ~ 20 ft SBA using fWW. cued for quads contraction and steadiness. pt agreed to do stairs. reviewed stair climbing techniques with pt. pt completed sit to stand from the chair SBA and ambulated in the hallway ~ 100 ft using FWW SBA. assisted pt towards the stairs. spouse arrived. educated spouse on how to assist pt with stairs. pt completed up/down stairs 2 sets using R rail ascending and another 2 sets with L rail ascending SBA. cued initially for techniques and safety but was able to complete without cues after first set. pt ambulated back towards his room using FWW SBA ~ 125 ft. assisted back to his room. pt requested to use the toilet and ambulated from w/c to the toilet using fWW SBA. completed toileting without assistance. pt ambulated out from the toilet towards the sink using FWW SBA and completed handwashing. pt was able to maintain standing balance SBA while doing handwashing. pt requested to go back to bed. ambulated to EOB SBA using FWW and completed sit to supine SBA. positioned pt on the bed. call light and table placed within reach. pt and spouse without further concerns. Gait Assessment Gait Gait Assistance Required: Standby Assistance Distance (Feet) 125 Able to Maintain Weight Bearing Status Yes During Gait Assistive Devices Assistive Device Gait Belt,Front Wheeled Walker Orthotic/Prosthetic Devices or Brace: No Gait Deviations General Gait Pattern Antalgic,Decreased Stride Length,Decreased Feet Clearance Factors Limiting Gait Function Factors Limiting Gait Function Decreased Activity Tolerance, Decreased Strength,Limited Range of Motion,Pain,Poor Balance,Poor Safety Awareness Stair Climbing Assessment Evaluation Level of Assist On Stairs Standby Assistance Devices Stair Climbing Assistive Devices Left Railing,Right Railing Technique/Endurance Stair Climbing Direction Ascend and Descend Stair Climbing Technique Step to Step Number of Steps Climbed 3 Query Text: Stair Climbing Set # Repetitions (reps) 4 PT-Balance Assessment Sitting Balance and Reactions Static Sitting Balance Ability Normal Dynamic Sitting Balance Ability Good Standing Balance and Reactions Static Standing Balance Ability Fair Dynamic Standing Balance Ability Fair Device Used FWW M5 PT-IP Objective Assessments Start: 05/19/23 13:09 Freq: NEEDED Status: Active Protocol: Document 05/19/23 09:00 AB (Rec: 05/19/23 13:23 [id number]) Orientation Orientation/Cognition Level of Alertness Alert Orientation Name,Place,Situation Language Function Ability No Deficits Noted Safety Awareness Understands Safety Issues Memory Description No Deficits Noted Gross Range of Motion Lower Extremity ROM Assessment Right Impaired Impairments L knee flexioN: ~ 70 deg L knee extension: ~ 30 deg less to 0 Strength Lower Extremity Strength Assessment Left Impaired Hip 4-/5 Knee 4-/5 Coordination Assessment Gross Coordination Gross Coordination WNL Sensation Assessment Sensation Gross Sensation WNL Muscle Tone Muscle Tone WNL Yes M6 PT-IP Treatment Start: 05/19/23 13:09 Freq: NEEDED Status: Active Protocol: Document 05/19/23 09:00 AB (Rec: 05/19/23 13:23 [id number]) Physical Therapy Treatment Exercises Exercises Heel Slides Education Education Provided Precautions,Weight Bearing Status,Post-Op Packet,Safety M7 PT-IP Assessment and Plan Start: 05/19/23 13:09 Freq: NEEDED Status: Active Protocol: Document 05/19/23 09:00 AB (Rec: 05/19/23 13:23 [id number]) PT Summary Assessment and Plan Potential Rehabilitation Potential Good Status of Condition at Evaluation Stable Summary Impairments Pain,ROM,Strength,Balance, Coordination,Sensation,Tone, Cognition,Bed Mobility, Transfers,Gait,Activity Tolerance Assessment Summary pt is a 53 y/o M s/p L TKA POD 1. pt is WBAT on LLE. pt requiring SBA with mobility and plans to go home with spouse to assist. pt stated that he has outpt PT set up. pt may go home when medically stable. Goals Bed Mobility Goal Independent Transfer Goal Independent,Front Wheeled Walker Gait Goal Independent,Front Wheel Walker Gait Distance 300 Other Goals improve transfers and ambulation using LRAD 300 ft mod I up/down 6 steps L rail ascending mod I up/down 5 steps R rail ascending mod I Days to Meet Goals 3 Frequency of Treatment Frequency Of Treatment Twice a Day Treatment Plan Physical Therapy Treatment Plan Bed Mobility Training,Transfer Training,Gait Training, Therapeutic Exercise,Balance Retraining,Post Op Education, Discharge Planning,Hot or Cold Pack,Neuromuscular Re-ed, Coordination Retraining,Manual Therapy Weight Bearing Status Weight Bearing Status Weight Bear as Tolerated Allowed Weight Bearing Amount (enter % LLE WBAT or #) (%) Recommendations To Nursing Amount of Assist Needed 1 Person Assist Discharge Recommendations PT Discharge Recommendations Home with Assistance, Outpatient PT Transportation Needs at Discharge Private Vehicle
--- NOTE | 2023-05-19 09:17 | P.DS_ITS ---
History of Present Illness History of Present Illness Chief complaint: Left TKA *OPB* Narrative: Elio is a pleasant 53 year old male who is POD#1 s/p a left TKA with Dr. Macias. Reports he is feeling well overall and he is ready to go home today. He lives at home with who is willing and able to assist patient in the immediate postop period as needed. He has a walker already for psot-op use as well. Has his post-op pain medication at home already. Pain is well managed with oral medication alone. Has ice machine at home he plans to use for post-op pain control. Has not been up to walk yet, has not been seen by PT. Has not set up outpaitnet PT yet however reports since he has had a right TKA by Dr. Macias in the past he feels he knows some of the exercises still. Has 6 steps he has to get up at home. Urinating on his own with bedside urinal. Denies fever, chest pain, chills, nausea or vomiting. Operative Date/Time/Diagnoses Date of procedure: 05/18/23 Time of procedure: 15:35 Pre-op diagnosis: Severe left knee OA Post-op diagnosis: same Procedure & Clinicians Procedure: Left total knee arthroplasty with Cori Same procedure as scheduled: Yes Indications: The patient has had progressively worsening left knee pain with radiographic changes consistent with arthritis. Non-operative management has failed and the patient has requested total knee replacement. The risks, benefits and alternatives to surgery were discussed with the patient prior to proceeding. Risks discussed included, but were not limited to, failure to relieve pain, stiffness, infection, nerve damage, deep venous thrombosis, pulmonary embolism, stroke, coma, heart attack, permanent paralysis and , as well as the potential need for eventual revision of the prosthetic. Surgeon: Sade Macias Automotive Glass Mechanic: Yadiel Steiner Anesthesia Type: General and Spinal Discharge Providers Provider Discharge Date: 05/19/23 Primary care physician: Claire Belcher MD Consults: 05/18/23 19:57 Consult to Discharge Planning Routine Comment: Consult to Occupational Therapy Evaluate & Treat Comment: Physician Instructions: Evaluate and treat Consult to Physical Therapy Evaluate & Treat Comment: Physician Instructions: postop TKA protocol 05/25/23 06:00 Consult to Anesthesiology Routine Comment: Consulting Provider: Anesthesiologist Reason for consultation: Regional block for post operative pain control Discharge provider: Sheila Fish PA-C Summary Hospital Course Discharge Diagnosis: left knee OA s/p left TKA Hospital Course: Uncomplicated hospital course Exam Vital Signs (past 8 hours): Oxygen Delivery Method Nasal Cannula Oxygen Flow Rate 0 Const General: cooperative, healthy appearing and comfortable Resp Effort & Inspection: normal respiratory effort and able to speak in complete sentences Cardio Rate: regular rate Skin Other: Clean and dry Aquacel dressing in place over the left anterior knee Neuro General: patient alert, patient awake and patient oriented x3 Cognition: normal cognition Speech: speech normal Extrem Other: 5/5 strength with dorsi flexion, plantar flexion and EHL. Sensation intact in all toes equally, small area of decreased sensation to lateral left knee. Left Knee ROM 0-80 Calves soft and non-tender bilaterally. 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 Continue to work on mobility, strengthening and stretching at home and with PT. Weight bearing as tolerated. 2) Continue multimodal pain management including using the ice machine. ASA BID for DVT prophylaxis. 3) Keep dressing clean, dry and intact until 2 week post-op appointment. 4) Follow up at [facility] in 2 weeks. Plan to d/c today pending passing PT evaluation. Discharge Plan Discharge Plan Patient Disposition: Home Provider Discharge Comment: Follow-up in 2 weeks at [facility] Discharge orders & Medications Discharge Orders: Discharge (Order); Ordered 05/19/23 Ordered By: Sheila Fish Prescriptions: New acetaminophen 325 mg Tablet 650 mg PO Q6H Qty: 90 0RF aspirin 81 mg Tablet,Delayed Release (Dr/Ec) 81 mg PO BID Qty: 90 0RF docusate sodium 100 mg Capsule 100 mg PO BID Qty: 30 0RF oxycodone 5 mg Tablet 5 mg PO Q4-6H PRN (Reason: Pain, Moderate (4-6)) Qty: 30 0RF Continued ibuprofen 400 mg Tablet 400 mg PO Q4HR PRN (Reason: Breakthrough Pain, Moderate) Qty: 60 0RF Follow up/Referrals: Claire Belcher MD [Primary Care Provider] - Diet/Activity/Treatments Diet: Diet as Tolerated Activity: Weight-bearing as tolerated. Work on mobility with PT. Cold/Heat Therapy: Ice to the knee for additional pain control Skin/Wound/Dressing Care Report to your healthcare provider any signs of infection, such as:: chills, fever, night sweats, unusual drainage and unusual redness Dressing: Keep dressing clean, dry and intact until 2 week post-op appointment. No soaking the incision site in pools or tubs. No topical ointments or creams to the incision site. If dressing becomes dirty or saturated okay to remove and replace with clean and dry gauze or call our office. Visit Report/Discharge Packet Instructions: DI for Knee Replacement, DI for Prescription Opioid Use Stand Alone Forms: Patient Portal/API Discharge Data Primary Care Provider: Claire Belcher Attending Provider: Sade Macias VTE Deep Vein Thrombosis/Pulmonary Embolism Present on Admission: No
--- NOTE | 2023-05-19 11:32 | CM.DANOTE ---
DCP: Case received, EMR reviewed and met with patient. Spouse, Raine, was at bedside. Introduced self and role. Was able to obtain information regarding patient's baseline activity status prior to surgery. DCP assessment completed with information currently available. Patient is a 53 year old male who admitted yesterday morning to the care of the orthopedic team. PCP: Dr. Belcher Payer: confirmed: Olivia Hearn. Patient came to the hospital via private vehicle for a planned surgical procedure. Patient had left total knee arthroplasty. Patient has history of severe left knee OA. Met with patient and spouse, Raine. Confirmed that patient resides in [place]. He is retired [employer] but is currently employed at [employer]. He is independent at his baseline. He stated, this is his second knee surgery. Patient has worked with P.[facility]. Confirmed spouse will be assisting patient when he goes home. P: Patient has discharge orders for home today. Ava Martinez RN/Wirer Discharge Planning/Care Management CM Discharge Assessment Start: 05/19/23 11:31 Freq: Status: Active Protocol: Document 05/19/23 11:31 (Rec: 05/19/23 11:32 [id number]) Discharge Planning Assessment Assigned Medical Clerk Ava Martinez RN/Wirer Advance Directives? No Advance Directives on File No History Provided By Patient,Medical Record Prior Living Arrangements House Household Members spouse Type of transporation used prior to Drives own vehicle admit Independent with ADL's Yes Is patient alert and oriented? Yes Caregiver for Another No Barriers to Discharge No Discharge Plan Home Transportation Arrangement Spouse can transport home Referrals Initiated None needed Whiteboard Updated in Patient Room with Yes name and ext. # of Medical Clerk Review Status In Process Next Review Type Continued Stay Review Pre-Anesthesia Assessment Start: 05/09/23 12:42 Freq: Status: Complete Protocol: Document 05/09/23 12:48 CAB (Rec: 05/09/23 13:31 CAB [id number]) Pre-Anesthesia Assessment PAC Comment Pre-op EKG reviewed with prior 06/02/20, no significant changes, reviewed with Dr. Mark Patient Information Reviewed Via Phone Assessment Assessment Completed With Patient Diagnostic Results BMP/CMP,CBC,EKG,Urinalysis Comment Labs/EKG @ 04/27/23 Primary Care Provider None Seen Specialist in Last 12 Months Yes Specialist Seen Orthopedist Primary Language Ghanaian Preferred Language Ghanaian Sheet Metal Contractor Required No Height 6 ft 2 in Weight 291 lb Body Mass Index (BMI) 37.3 Hearing Ability Normal Visual Assist Magnifying Glass Dentition Type Teeth, Natural Present Barriers to Learning None Hx Anesthesia Reactions No Hx Family Anesthesia Reaction No Hx Malignant Hyperthermia No Hx Blood Transfusions No Hx Blood Transfusion Reaction No Anesthesia Review Requested No Break Up Worker No alcohol intake current alcohol intake frequency a few times a month Smoking Status Never smoker Substance Use Type does not use Pain Present Pain Reported Musculoskeletal Symptoms Abnormal Gait,Difficulty Walking,Joint Pain History of Falling (Recent or History of No ) Patient is completely paralyzed or No completely immobile Mental Status Oriented to own ability Is patient on oxygen? No Does patient have INMAN/SOB No Hx Sleep Apnea Yes CPAP/BIPAP use prescribed and used routinely Currently Taking a Beta C[place]ar No Hx Chest Pain No Hx SOB No Hx Syncope or Dizziness No Anti-Coagulant Therapy No Has a Shoemaker Apprentice No Cardiac Testing No Hx Pacemaker/ICD No Pacemaker Rep Required? No Cardiac Clearance Received Not Applicable Diet Type At Home Regular Dysphagia No Chronic UTI No Urinary Catheter Present No Hx Urinary Self Catheterization No Diabetes No Hx Drug Resistant Organism No Presence of External or Internal Medical Yes: Right knee prosthesis, Devices CPAP Received a COVID vaccine? Yes Received all doses? Yes Marital Status Lives With spouse Current Living Arrangements House Number of Floors (Floors) 3 or More Floors Number of Stairs To Enter/Railing? 6 stairs into home Support System Spouse Does the Patient Have Assistance After Yes Surgery Patient Discharge Plan Description Return Home Comment Pt not advised on length of stay Feels Safe in Current Environment Yes Been Physically Hurt or Threatened By a No Person in Current Environment Do you have thoughts of harming yourself None or others? Are you currently considering suicide? No Do you have a plan to hurt yourself or No Plan others? Do You Have Any Spiritual Beliefs That No May Affect Your HC Choices? Do You Have Any Cultural Practices That No May Affect Your HC Choices? Who Can We Speak to About Patient's Care Family, friends Identifying Code for Release of Patient Declines to issue Information Health Care Proxy/Next of Kin Raine () Health Care Proxy Emergency Contact Name Raine () Emergency Contact Advance Directives? No Advance Directives on File No Power of Golf Ball Molder No PAC Instructions Bring CPAP/BIPAP,Do not shave/ clip surgical site,Durable medical equipment,Medications to take/avoid,Nasal antibiotic ,No ETOH/petroleum product on skin DOS,NPO,Post-op transportation,Pre-surgical wash,Sensory aids,Sturdy shoes /comfortable clothes,Do not bring valuables and remove jewelry
--- NOTE | 2023-05-19 12:07 | PC.NURSE ---
Pt discharged home today and was taken to the POV via W/C with this RN. Pt was able to self transfer from W/C into the car that his is driving. All questions and concerned answered at the time of discharge. Pt had previously schedule post op appt with surgeon prior to surgery. CPAP went home with at discharge along with cellphone, clothes, shoes, glasses, and bag at time of discharge.
== END 2023-05-19 12:02 | disposition home or self-care (01) ==
LOC: OR 16:23 → AC 16:25
PROVIDERS: PCP Student in an Organized Health Care Education/Training Program; Referring Provider Orthopaedic Surgery; Visit Provider Orthopaedic Surgery
PROC: 0SRD0JZ Replacement of Left Knee Joint with Synthetic Substitute, Open Approach (ICD-10-PCS; CPT 27447; principal; 2023-05-18 13:45)
DX: M17.12 Unilateral primary osteoarthritis, left knee (principal); M25.762 Osteophyte, left knee
CPT/HCPCS: 27447; 36415; 73560; 85014; 85018; 97116; 97161; C1776; C9290; J0171; J0690; J1100; J1170; J2250; J2704; J3010; J3410